=== PATIENT | male | born 1955 | race Caucasian/White ===

== ENCOUNTER → 2016-07-19 | Outpatient (CLI) | payer BC | LOC: MW.CHUR 13:58 | PROVIDERS: ATTEND Urology | DX: K40.90 Unilateral inguinal hernia, without obstruction or gangrene, not specified as recurrent (principal); R35.1 Nocturia | CPT/HCPCS: 36415; 81001; 84153 ==

== ENCOUNTER 2016-08-02 07:36 | Day surgery (SDC) | payer BC ==
[~2016-08-02 07:36] MED LIST: Lactated Ringers 1,000 ML IV SCH; ceFAZolin 1 GM in Premix Bag 1 BAG IV ONE
[2016-08-02] MEDS ORDERED: Lidocaine 2% 5 ML SDV ONE (08:43)
[2016-08-02] MEDS ORDERED: Rocuronium 10 MG/ML 10 ML Syringe ONE (08:43)
[2016-08-02] MEDS ORDERED: Ondansetron 4 MG/2 ML SDV ONE (08:43)
[2016-08-02] MEDS ORDERED: Midazolam 1 MG/ML 2 ML SDV ONE (08:44)
[2016-08-02] MEDS ORDERED: Propofol 200 MG/20 ML SDV ONE (08:44)
[2016-08-02] MEDS ORDERED: Neostigmine Methylsulfate 1 MG/ML 5 ML Syringe ONE (08:44)
[2016-08-02] MEDS ORDERED: fentaNYL 250 MCG/5 ML SDV ONE (08:44)
--- NOTE | 2016-08-02 09:00 | PCM.PREANE ---
Preanesthetic Assessment - Anesthesia/Transfusion/Family Hx Anesthesia History: Prior Anesthesia Without Reaction Transfusion History: No Prior Transfusion(s) Additional History: smoker q day - Review of Systems General: No Symptoms Pulmonary: Cough (periodic with smoking hx) Cardiovascular: No Symptoms Gastrointestinal: Other (hernia, right) Neurological: No Symptoms Other: Reports: None - Physical Assessment NPO Status Date: 08/01/16 NPO Status Time: 23:30 O2 Sat by Pulse Oximetry: 98 Respiratory Rate: 16 Vital Signs: Last Vital Signs Temp 98.6 F 08/02/16 08:21 Pulse 74 08/02/16 08:21 Resp 16 08/02/16 08:21 BP 156/76 H 08/02/16 08:21 Pulse Ox 98 08/02/16 08:21 Height: 6 ft Weight: 159 lb ASA Class: 2 Mental Status: Alert & Oriented x3 Airway Class: Mallampati = 1 Dentition: Reports: Normal Dentition Thyro-Mental Finger Breadths: 3 Mouth Opening Finger Breadths: 3 ROM/Head Extension: Full Lungs: Clear to auscultation, Normal respiratory effort Cardiovascular: Regular Rate, Regular Rhythm, No Murmurs - Allergies Allergies/Adverse Reactions: Allergies Allergy/AdvReac Type Severity Reaction Status Date / Time adhesive tape Allergy Rash Verified 07/28/16 15:48 - Blood Blood Available: No Product(s) Available: None - Acknowledgements Anesthesia Type Planned: General Anesthesia (LMA vs OET; ? since smoker) Pt an Appropriate Candidate for the Planned Anesthesia: Yes Alternatives and Risks of Anesthesia Discussed w Pt/Guardian: Yes Pt/Guardian Understands and Agrees with Anesthesia Plan: Yes PreAnesthesia Questionnaire Other HEENT History: wears glasses Cardiovascular History: Reports: None Respiratory History: Reports: None Gastrointestinal History: Reports: None Musculoskeletal History: Reports: None Neurological History: Reports: None Psychiatric History: Reports: None Endocrine/Metabolic History: Reports: None Hematologic History: Reports: None Immunologic History: Reports: None Oncologic (Cancer) History: Reports: Basal cell carcinoma Other Oncologic History: removed from neck Dermatologic History: Reports: Eczema - Past Surgical History Head Surgeries/Procedures: Reports: None HEENT Surgical History: Reports: Oral surgery Other HEENT Surgeries/Procedures: has dental implants Cardiovascular Surgical History: Reports: None Respiratory Surgical History: Reports: None GI Surgical History: Reports: None Male Surgical History: Reports: Vasectomy Endocrine Surgical History: Reports: None Neurological Surgical History: Reports: None Musculoskeletal Surgical History: Reports: None Oncologic Surgical History: Reports: None Dermatological Surgical History: Reports: None - SUBSTANCE USE Smoking Status *Q: Current Every Day Smoker Tobacco Use Within Last Twelve Months: Cigarettes Days Per Week of Alcohol Use: 7 Number of Drinks Per Day: 3 Total Drinks Per Week: 21 Recreational Drug Use History: No - HOME MEDS Home Medications: Home Meds Ascorbic Acid [Vitamin C] 8 tab PO DAILY 07/28/16 [History] Biosil 12 drop PO DAILY 07/28/16 [History] Biotin 5,000 mcg PO DAILY 07/28/16 [History] Vitamin A & D 24989-227 1 cap PO DAILY 07/28/16 [History] Vitamin B Complex [B Complex] 1 tab PO DAILY 07/28/16 [History] Zinc Gluconate [Zinc] 30 mg PO DAILY 07/28/16 [History] - CURRENT (IN HOUSE) MEDS Current Meds: Current Medications Lactated Ringer's (Ringers, Lactated) 1,000 mls @ 100 mls/hr IV ASDIRECTED [facility] Last Admin: 08/02/16 08:15 Dose: 100 mls/hr Discontinued Medications Fentanyl (Sublimaze) Confirm Administered Dose 250 mcg .ROUTE .STK-MED ONE Stop: 08/02/16 08:45 Glycopyrrolate () Confirm Administered Dose 1 mg .ROUTE .STK-MED ONE Stop: 08/02/16 08:44 Cefazolin Sodium/Dextrose 1 gm (/ Premix) 50 mls @ 100 mls/hr IV ONCALL ONE Stop: 08/02/16 00:30 Lidocaine (Xylocaine-Mpf 2%) Confirm Administered Dose 5 ml .ROUTE .STK-MED ONE Stop: 08/02/16 08:44 Midazolam HCl (Versed 1 Mg/Ml) Confirm Administered Dose 2 mg .ROUTE .STK-MED ONE Stop: 08/02/16 08:45 Neostigmine Methylsulfate (Neostigmine) Confirm Administered Dose 5 mg .ROUTE .STK-MED ONE Stop: 08/02/16 08:45 Ondansetron HCl (Zofran) Confirm Administered Dose 12 mg .ROUTE .STK-MED ONE Stop: 08/02/16 08:44 Propofol (Diprivan 20 Ml) Confirm Administered Dose 200 mg .ROUTE .STK-MED ONE Stop: 08/02/16 08:45 Rocuronium [place] (Zemuron) Confirm Administered Dose 100 mg .ROUTE .STK-MED ONE Stop: 08/02/16 08:44 Preanesthetic Assessment - ANESTHESIA/TRANSFUSION/FAMILY HX Family History of Anesthesia Reaction: No - PHYSICAL ASSESSMENT O2 Sat by Pulse Oximetry: 98 RR: 16 Vital Signs: Last Vital Signs Temp 98.6 F 08/02/16 08:21 Pulse 74 08/02/16 08:21 Resp 16 08/02/16 08:21 BP 156/76 H 08/02/16 08:21 Pulse Ox 98 08/02/16 08:21 Height: 6 ft Weight: 159 lb NPO Status Date: 08/01/16 NPO Status Time: 23:30 - ALLERGIES Allergies/Adverse Reactions: Allergies Allergy/AdvReac Type Severity Reaction Status Date / Time adhesive tape Allergy Rash Verified 07/28/16 15:48
[2016-08-02] MEDS ORDERED: Bupivacaine 0.5% 10 ML SDV ONE (09:59)
[2016-08-02] MEDS ORDERED: Sodium Chloride 0.9% 20 ML ONE (10:25)
[2016-08-02] MEDS ORDERED: ceFAZolin 1 GM Vial ONE (10:25)
[2016-08-02] MEDS ORDERED: Phenylephrine/Normal Saline 100 MCG/ML 10 ML Syringe ONE (10:33)
[2016-08-02] MEDS ORDERED: ePHEDrine 50 MG/ML SDV ONE (10:33)
[2016-08-02] MEDS ORDERED: Albuterol/Ipratropium 3.0-0.5 MG/3 ML Neb Soln NEB ONE (12:39)
[2016-08-02] MEDS ORDERED: Albuterol/Ipratropium 3.0-0.5 MG/3 ML Neb Soln ONE (12:45)
[2016-08-02 13:11] LABS: CHLORIDE,CL 104 mmol/L (98-110); SODIUM,NA 137 mmol/L (136-146)
--- NOTE | 2016-08-02 13:49 | PCM.POSTAN ---
POST ANESTHESIA ASSESSMENT - MENTAL STATUS Mental Status: alert, oriented - RESPIRATORY Respiratory Status: respiratory rate WNL, airway patent, O2 saturation stable - CARDIOVASCULAR CV Status: pulse rate WNL, blood pressure stable - GASTROINTESTINAL GI Status: no symptoms - PAIN Pain Score: 3 (Just wants to go home) - POST OP HYDRATION Hydration Status: adequate & stable - OBSERVATIONS Free Text/Narrative:: Difficult to assess since he states his sitting position is the "way I react to anesthesia". Coughing post op treated with bronchodilator with halt to coughing. Encouraged him to follow up with sales account associate as discussed with he and his sister.
--- NOTE | 2016-08-02 13:52 | PCM48HPAN ---
Post Anesthesia Note - EVALUATION WITHIN 48HRS OF ANESTHETIC Vital Signs in Normal Range: Yes Patient Participated in Evaluation: Yes Respiratory Function Stable: Yes Airway Patent: Yes Cardiovascular Function Stable: Yes Hydration Status Stable: Yes Pain Control Satisfactory: Yes Nausea and Vomiting Control Satisfactory: Yes Mental Status Recovered: Yes - COMMENTS/OBSERVATIONS Free Text/Narrative:: See the post anesthesia assessment note.
[2016-08-02 14:13] VITALS: BP 105/61
--- NOTE | 2016-08-02 18:40 | OR ---
SURGEON: Mateo Chinchilla M.D. DATE OF PROCEDURE: 08/02/2016 PREOPERATIVE DIAGNOSIS: Right inguinal scrotal hernia. POSTOPERATIVE DIAGNOSE: Right inguinal scrotal hernia. OPERATION: Right inguinal hernia repair. DESCRIPTION: The patient was given general anesthesia, placed in the supine position. The lower abdomen, surgical area were all prepped and draped in sterile drapes. A right groin incision made and carried through both Jim's fascia and the external oblique aponeurosis. The cord structures were isolated from the hernia sac. The contents of the hernia sac were pushed back in, part of the omentum was resected as it was adherent to the peritoneum holding part of the hernia sac. The hernia sac was then closed using 2-0 silk pursestring suture was put back in. The defect in the transversalis fascia was closed using interrupted 2- 0 silk sutures. A relaxing incision was then made and the conjoint tendon was sutured to the base of the inguinal ligament. The pulse is palpable in the cord at the end of that closure. The external oblique aponeurosis was then put back together using interrupted 3-0 silk sutures. The subcutaneous tissues reapproximated with 3-0 chromic. Skin was closed with fluoro subcuticular nylon. The patient tolerated the procedure well. The patient was moved to recovery room in good condition. Estimated blood loss under 20 mL. LINO / DERRICK /[id number]
== END 2016-08-02 14:00 | disposition home or self-care (01) ==
LOC: MW.SDS 07:36
PROVIDERS: ATTEND Urology
PROC: 0YQ50ZZ Repair Right Inguinal Region, Open Approach (ICD-10-PCS; principal; 2016-08-02)
DX: K40.90 Unilateral inguinal hernia, without obstruction or gangrene, not specified as recurrent (principal); F17.210 Nicotine dependence, cigarettes, uncomplicated; Z79.899 Other long term (current) drug therapy; Z98.890 Other specified postprocedural states; Z98.52 Vasectomy status
CPT/HCPCS: 36415; 49505; 80048; 88302; 93005; 94664; J0690; J2250; J2405; J3010; J7120; 00830; J2704

== ENCOUNTER → 2016-08-22 | Outpatient (CLI) | payer BC | LOC: MW.CHUR 16:10 | PROVIDERS: ATTEND Urology | DX: K40.90 Unilateral inguinal hernia, without obstruction or gangrene, not specified as recurrent (principal) | CPT/HCPCS: 87070 ==